=== PATIENT | male | born 1980 | race Caucasian/White ===

== ENCOUNTER 2020-05-16 21:21 | Emergency (ER) | payer OTHER ==
[~2020-05-16] VITALS: Ht 172.7 cm; Wt 68.0 kg
--- NOTE | 2020-05-16 21:54 | NUR ---
MD noted at bedside for MSE
--- NOTE | 2020-05-16 22:00 | NUR ---
covid swab taken and sent to lab
--- NOTE | 2020-05-16 22:29 | NUR ---
Patient discharged to home in stable condition. patient ambulated with steady gait. Written and verbal after care instructions given. No signs of distress noted. Patient verbalizes understanding of instructions. Stressed follow up or return to ER for worsening s/s.
[2020-05-16 22:32] VITALS: BP 125/89
== END 2020-05-16 22:26 | disposition home or self-care (01) ==
LOC: ER 21:30
DX: R05 Cough (principal); F17.210 Nicotine dependence, cigarettes, uncomplicated; Z20.828 Contact with and (suspected) exposure to other viral communicable diseases
CPT/HCPCS: 71045; 99284; 99406; U0003; A4663